=== PATIENT | male | born 1935 | race Caucasian/White ===

== ENCOUNTER 2017-12-03 05:23 | Inpatient (IN) | payer OTHER ==
[2017-11-19 13:09] LABS: HEMATOCRIT 40.4 % (42.0-52.0); MCH 31.7 pg (26.0-34.0); MCHC 34.6 g/dL (28.0-37.0); MCV 91.8 fL (80.0-100.0); RBC 4.41 mil/uL (4.50-6.00); RDW 13.6 % (10.5-14.5); WBC 9.5 thou/uL (4.0-11.0)
[2017-11-19 13:20] LABS: CALCIUM 9.1 mg/dL (8.5-10.1); CREATININE 1.2 mg/dL (0.7-1.3); POTASSIUM 4.5 mmol/L (3.5-5.1)
[2017-11-19 13:23] LABS: URINE BILIRUBIN NEGATIVE (Negative); URINE BLOOD NEGATIVE (Negative); URINE CLARITY CLEAR; URINE COLOR YELLOW; URINE GLUCOSE-RANDOM* NEGATIVE (Negative); URINE KETONES NEGATIVE (Negative); URINE LEUKOCYTES-REFLEX NEGATIVE (Negative); URINE NITRITE-REFLEX NEGATIVE (Negative); URINE PROTEIN (DIPSTICK) NEGATIVE (Negative); URINE UROBILINOGEN 0.2 E.U./dl (0.2-1.0)
[2017-11-19 13:25] LABS: PROTIME 10.2 Seconds (9.3-11.4)
[~2017-12-03] VITALS: Ht 177.8 cm; Wt 92.5 kg
[2017-12-03] VITALS (7 sets, daily range): BP systolic 122–159; BP diastolic 65–97
--- NOTE | ~2017-12-03 | EKG ---
[place] [address] [facility] [place] [address] ELECTROCARDIOGRAM REPORT Name: BRIANAJOHNNY Room #: [facility]#: [id number] Admission: Attend Phys: Eber Andersen MD Discharge: Date of : 37 Report #: [id number] THIS REPORT FOR: //name// [facility] Test Date: 2017-11-19 Test Time: 13:04:57 Pat Name: JOHNNY WARREN Department: Room: Gender: Electrician Technician: [facility] : 1935 Requested By: Eber Andersen Order Number: [id number] MD: Yann Newsome Measurements Intervals [place] Rate: 75 P: 36 NC: 177 QRS: -9 QRSD: 112 T: -14 QT: 399 QTc: 446 Interpretive Statements Sinus rhythm Atrial premature complex Nonspecific ST and T wave abnormality No previous ECG available for comparison Electronically Signed On 11-20-2017 7:53:37 [employer] by Yann Newsome [email or web address] <ELECTRONICALLY SIGNED> By: Yann Newsome MD, [facility] 11/20/17 0753 [id number] Yann Newsome MD, FACC /EPI
--- NOTE | ~2017-12-03 | O ---
[facility] [place] [address] OPERATIVE REPORT Name: JOHNNY WARREN Room #: 409-P [facility] M.R[facility]#: [id number] Admission: 12/03/17 Attend Phys: Eber Andersen MD Discharge: Date of : 37 Report #: [id number] THIS REPORT FOR: //name// CC: ARINA NEWSOME FAM unknown Eber Andersen DATE OF SERVICE: 12/03/2017 PREOPERATIVE DIAGNOSIS: Left knee medial compartment osteoarthritis. POSTOPERATIVE DIAGNOSIS: Left knee medial compartment osteoarthritis. PROCEDURE: Left unicompartmental knee arthroplasty. SURGEON: Eber Andersen MD. DEVELOPMENT DISABILITY SPECIALIST: Portia Castellano PA-C. INDICATIONS FOR DEVELOPMENT DISABILITY SPECIALIST: Throughout the case, extensive retraction and manipulation of the knee was required. This was afforded to me by my campus administrative assistant. ANESTHESIA: General endotracheal with an adductor canal block. IMPLANTS: [employer] [place] twin peg size medium femur, a size C tibia and a size 7 polyethylene. TOURNIQUET TIME: 65 minutes. ESTIMATED BLOOD LOSS: 25 mL. COMPLICATIONS: None. SPECIMENS: None. CONDITION UPON LEAVING THE OPERATING ROOM: Stable. INDICATION FOR PROCEDURE: The patient is an 82-year-old gentleman with left knee medial compartment osteoarthritis. He had failed conservative treatment for this and after discussion with him, he elected for left unicompartmental knee arthroplasty. DESCRIPTION OF PROCEDURE: Risks, benefits, alternatives, complications were discussed in detail with the patient including but not limited to risk of anesthesia, risk of damage to nerves, arteries, blood vessels, risk for infection, bleeding, risk for continued knee pain and need for reoperation. [facility] [address] [place] [address] OPERATIVE REPORT Name: JOHNNY WARREN Room #: 409-P [facility] M.R[facility]#: [id number] Admission: 12/03/17 Attend Phys: Eber Andersen MD Discharge: Date of : 37 Report #: [id number] Informed consent was obtained from the patient. The left knee was appropriately marked in the preoperative holding area. Adductor canal block was placed by anesthesia. IV Ancef was given for preoperative antibiotics. He was brought to the operating room and placed in the supine position on the operating room table. General endotracheal anesthesia was induced without complication. Tourniquet was placed on the left thigh. Left lower extremity was prepped and draped in normal sterile fashion. Timeout was performed properly identifying the patient and procedure as well as instrumentation. All in the operating room were in agreement. Left lower extremity was exsanguinated, tourniquet was inflated. Tourniquet time was 65 minutes. Standard medial approach to the knee was made with a 10 blade through the skin. Dissection was taken down sharply to the fascia and deep flaps were developed medially and laterally. Fresh 10 blade was used to make a medial parapatellar arthrotomy and the knee was inspected. There were moderate to severe medial compartment osteoarthritic change with a well-maintained lateral and patellofemoral compartment. It was decided to proceed with unicompartmental arthroplasty. Anterior horn of the medial meniscus was removed sharply. Deep retractors were placed. Tibial resection guide was then pinned in place based off the medial femoral condyle and a size 3 resection guide. Tibial resection was made and sized, found to be a size C. Size C tibial trial was placed, and the flexion gap was checked and found to be a 7. Intramedullary alignment was used and drill was used to gain access to the canal of the femur. IM alignment yoselyn was then placed and the guide for the femoral twin pegged component was placed and drill holes were made. The zero spigot was placed and the femur was milled. The trial components were placed and the flexion gap was measured to be a 7, the extension gap at a 2 until a 5 spigot was placed. Femur was milled again and trial components were placed and found to have good balance in flexion and extension at a 7. Anterior chamfer was removed from the femur. Posterior osteophyte was removed. Keel cut for the tibia was made and a keeled tibial trial and femoral trial was placed, but a size 7 polyethylene trial was placed and knee was taken through range of motion, found to be stable, found to have good balance in flexion and extension. Trial components were removed. Bony ends were thoroughly irrigated with normal saline. A final size medium femur, size C tibia were cemented in place using standard cementation techniques. While the cement cured, a periarticular injection consisting of morphine, ropivacaine, epinephrine and Toradol was placed around the knee joint. After the cement cured, a final size 7 polyethylene was placed. A gram of vancomycin was placed deep in the joint. The tourniquet was deflated. Hemostasis was obtained with Bovie cautery. Fascia was closed with 0 Vicryl, skin was closed with 2-0 Vicryl, 3-0 Monocryl, Dermabond and Aquacel were applied. The patient tolerated this procedure well and went to the recovery room under care of Anesthesia postoperatively. <ELECTRONICALLY SIGNED> By: Eber Andersen MD 12/04/17 0845 [id number] Eber Andersen MD /nt
[~2017-12-03 05:23] MED LIST: ALEVE220 MG PO; ASPIR 8181 MG PO; JUICE PLUS PO; PRESERVISION A1 EACH PO
[2017-12-04] VITALS: BP 132/71
[2017-12-04 04:00] VITALS: BP 133/65
[2017-12-04 05:55] LABS: HEMATOCRIT 36.1 % (42.0-52.0); HEMOGLOBIN 12.6 gm/dL (14.0-18.0); MCH 31.3 pg (26.0-34.0); MCHC 34.8 g/dL (28.0-37.0); MCV 90.2 fL (80.0-100.0); RBC 4.01 mil/uL (4.50-6.00); RDW 13.4 % (10.5-14.5); WBC 23.1 thou/uL (4.0-11.0)
[2017-12-04 08:40] VITALS: BP 127/59
[2017-12-04] MEDS ORDERED: TRI-BUFFERED A325 M1 PO (08:45)
[2017-12-04] MEDS ORDERED: NEURONTIN 300300 M1 PO (08:46)
[2017-12-04] MEDS ORDERED: HYDROCODON-ACE1 EAC7 PO (08:46)
[2017-12-04 10:55] VITALS: BP 125/55
[2017-12-04 11:18] VITALS: BP 122/55
[2017-12-04 13:42] VITALS: BP 122/55
[2018-08-06] MEDS ORDERED: TUMS PO (00:33)
[2018-08-10] MEDS ORDERED: CALTRATE-600 W1 EACH PO (08:59)
[2018-08-10] MEDS ORDERED: PULMICORT0.5 MG/21 INH (08:59)
[2018-08-10] MEDS ORDERED: PEPCID20 MG PO (08:59)
[2018-08-10] MEDS ORDERED: LASIX 40 MG TAB40 M2 PO (16:15)
[2018-08-10] MEDS ORDERED: AUGMENTIN 875-1 EACH PO (16:15)
[2018-08-10] MEDS ORDERED: PREDNISONE 20 M20 MG PO (16:15)
[2018-08-10] MEDS ORDERED: ALBUTEROL2.5 MG/0.5 INH (16:15)
== END 2017-12-04 14:35 | disposition home health service (06) | DRG 470 ==
LOC: TBA 05:23 → 4N 05:23 → PRE 05:32 → 4N 15:52 → ENTRNSPT 12-04 14:29 → EDTRNSPTSTS 12-04 14:29 → 4N 12-04 14:35
PROVIDERS: Orthopaedic Surgery
PROC: 0SRD0L9 Replacement of Left Knee Joint with Medial Unicondylar Synthetic Substitute, Cemented, Open Approach (ICD-10-PCS; principal; 2017-12-03)
DX: M17.12 Unilateral primary osteoarthritis, left knee (principal); M06.9 Rheumatoid arthritis, unspecified; Z87.891 Personal history of nicotine dependence; Z79.899 Other long term (current) drug therapy
CPT/HCPCS: 10790; 50010; 50101; 50415; 50915; 51130; 51225; 51771; 52256; 53078; 53370; 54118; 56527; 56528; 57095; 62110; 62900; 70005

== ENCOUNTER → 2020-04-26 | Outpatient (CLI) | payer OTHER ==
[~2020-04-26] MED LIST changes: +ALBUTEROL2.5 MG/0.5 INH; +AUGMENTIN 875-1 EACH PO; +CALTRATE-600 W1 EACH PO; +HYDROCODON-ACE1 EAC7 PO; +LASIX 40 MG TAB40 M2 PO; +NEURONTIN 300300 M1 PO; +PEPCID20 MG PO; +PREDNISONE 20 M20 MG PO; +PULMICORT0.5 MG/21 INH; +TRI-BUFFERED A325 M1 PO; +TUMS PO
== END ==
LOC: SJCVC 12:58
DX: I11.9 Hypertensive heart disease without heart failure (principal); E78.5 Hyperlipidemia, unspecified; J84.9 Interstitial pulmonary disease, unspecified; Z79.899 Other long term (current) drug therapy; Z82.49 Family history of ischemic heart disease and other diseases of the circulatory system; Z87.891 Personal history of nicotine dependence

== ENCOUNTER → 2021-05-16 | Outpatient (CLI) | payer OTHER | LOC: SJCVCIMAG 07:46 | PROVIDERS: ATTEND Internal Medicine | DX: I08.1 Rheumatic disorders of both mitral and tricuspid valves (principal); I27.20 Pulmonary hypertension, unspecified; Z79.899 Other long term (current) drug therapy ==